=== PATIENT | female | born 1955 | race Caucasian/White ===

== ENCOUNTER 2019-06-06 10:15 | Day surgery (SDC) | payer BC ==
[~2019-06-06] VITALS: Ht 170.2 cm; Wt 63.1 kg
[~2019-06-06 10:15] MED LIST: Cytomel5 MCG PO; LEVO-T125 MC1 PO; Prempro 0.625-1 EACH PO
--- NOTE | 2019-06-06 12:13 | NUR ---
06/06/19 1213 Daniela Jacob RED & YELLOW LOWER SCOPE
== END 2019-06-06 13:04 | disposition home or self-care (01) ==
LOC: ORSCSDS 10:15
DX: R19.5 Other fecal abnormalities (principal); K92.1 Melena; D12.3 Benign neoplasm of transverse colon; D12.2 Benign neoplasm of ascending colon; K64.8 Other hemorrhoids; E03.9 Hypothyroidism, unspecified; Z87.891 Personal history of nicotine dependence; Z79.899 Other long term (current) drug therapy
CPT/HCPCS: 88305; J2704; J7120

== ENCOUNTER → 2019-10-17 | Outpatient (CLI) | payer BC ==
[2019-10-18 14:11] LABS: HPV 16 Negative (Negative); HPV 18 Negative (Negative); HPV OTHER HR TYPES Negative (Negative)
== END | disposition home or self-care (01) ==
LOC: LAB 14:14 → LAB SHORT 14:14
PROVIDERS: Obstetrics & Gynecology
DX: Z12.4 Encounter for screening for malignant neoplasm of cervix (principal)
CPT/HCPCS: 87624; G0123

== ENCOUNTER → 2019-10-25 | Outpatient (CLI) | payer BC ==
[2019-10-25 13:20] LABS: Free Thyroxine 0.28 ng/dL (0.70-1.60)
[2019-10-25 13:43] LABS: Triiodothyronine, Free 0.55 pg/mL (2.18-3.98)
== END | disposition home or self-care (01) ==
LOC: LAB 12:26 → LAB SHORT 12:26
PROVIDERS: Obstetrics & Gynecology
DX: E03.9 Hypothyroidism, unspecified (principal)
CPT/HCPCS: 84439; 84443; 84481